=== PATIENT | female | born 1930 | race Hispanic/Latino ===

== ENCOUNTER 2018-10-06 16:57 | Emergency (ER) | payer MEDICARE, OTHER ==
[2018-10-06 17:11] VITALS: BMI 33.6
[2018-10-06 17:23] VITALS: TEMP 97.6; O2SAT 97
[2018-10-06] MEDS ORDERED: Lidocaine 5% Patch TD STA (18:15)
[2018-10-06] MEDS ORDERED: Lidocaine 5% Patch TD ONE (18:23)
--- NOTE | 2018-10-06 18:30 | ED PDOC ---
HPI: Back Time Seen by Provider: 10/06/18 17:59 Chief Complaint (Nursing): Back Pain Chief Complaint (Provider): Back Pain History Per: Patient, Family History/Exam Limitations: no limitations Onset/Duration Of Symptoms: Days Current Symptoms Are (Timing): Still Present Quality Of Discomfort: "Pain" Additional Complaint(s): 88 y/o female with a PMHx of HTN, Arthritis, Bronchitis and Hypercholesterolemia presents to the ED for evaluation of low back pain, onset 4 days ago. Patient states back pain is right sided, comes and goes and radiates down to the right leg. Patient reports pain worsens when sitting, laying down and standing. Patient notes of taking Tramadol with minimal relief of pain. Patient last took Tramadol 2 hours prior to arrival. Patient additionally reports of slight relief of pain when walking. Of note, patient reports falling off the couch three weeks ago, landing on her knees. Otherwise, patient denies numbness, tingling, abdominal pain, constipation, incontinence, diarrhea, chest pain, shortness of breath and headache. PMD: [facility]aus[facility] Card Past Medical History Reviewed: Historical Data, Nursing Documentation, Vital Signs Vital Signs: Last Vital Signs Temp 97.6 F 10/06/18 17:22 Pulse 67 10/06/18 17:22 Resp 16 10/06/18 17:22 BP 187/82 H 10/06/18 17:22 Pulse Ox 97 10/06/18 17:22 - Medical History PMH: Anxiety, Depression, HTN, Hypercholesterolemia - Surgical History Surgical History: Cholecystectomy, Tonsillectomy - Family History Family History: States: Unknown Family Hx - Home Medications Home Medications: Ambulatory Orders Medication Instructions Recorded Allergy Pill PO DAILY 09/05/14 Alprazolam [Xanax] PO PRN 09/05/14 Blood Pressure Pill PO BID 09/05/14 Cholesterol Pill PO HS 09/05/14 Escitalopram [Lexapro] PO DAILY 09/05/14 No Known Home Med 09/05/14 - Allergies Allergies/Adverse Reactions: Allergies Allergy/AdvReac Type Severity Reaction Status Date / Time No Known Allergies Allergy Verified 10/06/18 17:11 Review of Systems ROS Statement: Except As Marked, All Systems Reviewed And Found Negative Cardiovascular: Negative for: Chest Pain Respiratory: Negative for: Shortness of Breath Gastrointestinal: Negative for: Abdominal Pain, Diarrhea, Constipation Genitourinary Female: Negative for: Incontinence Musculoskeletal: Positive for: Back Pain (right), Leg Pain (right) Neurological: Negative for: Weakness, Numbness, Headache Physical Exam - Reviewed Nursing Documentation Reviewed: Yes Vital Signs Reviewed: Yes - Physical Exam Appears: Positive for: No Acute Distress Head Exam: Positive for: ATRAUMATIC, NORMOCEPHALIC Skin: Positive for: Normal Color, Warm, Dry Eye Exam: Positive for: Normal appearance Neck: Positive for: Normal, Painless ROM Cardiovascular/Chest: Positive for: Regular Rate, Rhythm. Negative for: Murmur Respiratory: Positive for: Normal Breath Sounds. Negative for: Respiratory Distress Back: Positive for: Other (Tenderness to the lower back/buttock area.) Extremity: Positive for: Normal ROM. Negative for: Deformity Neurologic/Psych: Positive for: Alert, Oriented. Negative for: Motor/Sensory Deficits - ECG O2 Sat by Pulse Oximetry: 97 (RA) Pulse Ox Interpretation: Normal - Radiology X-Ray: Interpreted by Me, Viewed By Me X-Ray Interpretation: No Acute Disease - Progress ED Course And Treament: 1849: Dr. Veloz to take over care. Fu ct and pain control. Medical Decision Making Medical Decision Making: Time: 1814 Plan: -- Lumbar Spine Complete XR -- Lidoderm 1 ea TD -- Motrin 600 mg PO ___ Scribe Attestation: Documented by Mendoza Scherer, acting as a scribe for Paxton Martínez MD. Provider Scribe Attestation: All medical record entries made by the Scribe were at my direction and personally dictated by me. I have reviewed the chart and agree that the record accurately reflects my personal performance of the history, physical exam, medical decision making, and the department course for this patient. I have also personally directed, reviewed, and agree with the discharge instructions and disposition. Disposition - Clinical Impression Clinical Impression: Back pain - Patient ED Disposition Is Patient to be Admitted: No - Disposition Disposition Time: 18:49 Condition: STABLE Patient Signed Over To: Kenyon Veloz
--- NOTE | 2018-10-06 19:10 | ED PDOC ---
- ECG O2 Sat by Pulse Oximetry: 97 (RA) Pulse Ox Interpretation: Normal Medical Decision Making Medical Decision Making: Time: 1899 -- Patient endorsed to me by Dr. Martínez, pending CT lumbar. Time: 2020 CT RESULTS FINDINGS: ALIGNMENT: Slight anterolisthesis is seen of L5 on S1 vertebral body. DISCS/DEGENERATIVE CHANGES: Varying degrees of spinal canal with mild narrowing is seen at virtually all levels from mild diffuse disc bulges. Vacuum phenomenon is seen at virtually all levels except L5/S1 and L3/L4 level. Facet degenerative changes are seen predominating at the L4/L5 and L5/S1 levels. Facet fusion is seen bilaterally at the L5/S1 level. BONES: No acute fracture is seen. Slight anterolisthesis is seen of L4 and L5 vertebral body. SOFT TISSUES: The soft tissues are unremarkable. MISCELLANEOUS: Marginal anterior osteophytes are seen at multiple levels. Mild spinal canal narrowing is seen to varying degrees by diffuse disc bulge virtually all levels. IMPRESSION: 1. No acute fracture is seen. 2. Slight anterolisthesis is seen of L4 and L5 vertebral body. 3. Facet degenerative changes are seen predominating at the L4/L5 and L5/S1 levels. 4. Marginal anterior osteophytes are seen at multiple levels. 5. Vacuum phenomenon is seen at virtually all levels except L5/S1 and L3/L4 level. 6. Mild spinal canal narrowing is seen to varying degrees by diffuse disc bulge virtually all levels. 7. Facet fusion is seen bilaterally at the L5/S1 level. Electronically signed on Oct 06, 2018 8:21:46 PM EST by: Karel Silveira M.D., HEATHER Certified By [facility] Trained MRI and CT Specialist Time: 2038 -- On re-evaluation, patient reports some improvement of symptoms. Provider explained findings at length with the patient and family. Patient advised to follow up with PMD for physiotherapy referral and further management. Patient is stable for discharge with a diagnosis of low back pain, bulging disks. Return precautions provided. ___ Scribe Attestation: Documented by Mendoza Scherer, acting as a scribe for Kenyon Veloz MD. Provider Scribe Attestation: All medical record entries made by the Scribe were at my direction and personally dictated by me. I have reviewed the chart and agree that the record accurately reflects my personal performance of the history, physical exam, medical decision making, and the department course for this patient. I have also personally directed, reviewed, and agree with the discharge instructions and disposition. Disposition Counseled Patient/Family Regarding: Studies Performed, Diagnosis, Need For Followup, Rx Given - Clinical Impression Clinical Impression: Back pain, Bulging lumbar disc - POA Present On Arrival: Falls Or Trauma - Disposition Disposition: Routine/Home Disposition Time: 20:39 Condition: STABLE Prescriptions: Celecoxib [Celebrex] 200 mg PO BID #10 capsule Lidocaine 5% [Lidoderm] 1 ea TD QAM #10 patch Instructions: Low Back Pain in Adults Forms: [facility] (Yakut)
[2018-10-06 20:02] VITALS: BP 147/75; PULSE 62
[2018-10-07 01:05] VITALS: RESP 18
--- NOTE | 2018-10-07 09:15 | RAD ---
Date of service: 10/06/2018 PROCEDURE: Radiographs of the Lumbar Spine. HISTORY: back pain COMPARISON: No prior. FINDINGS: BONES: Normal alignment. No listhesis. No fracture. Diffuse thoraco lumbar spondylosis most pronounced anteriorly and laterally laterally at the right T11-12 level and left laterally at the L4-5 level. DISC SPACES: Diffusely narrowed. OTHER FINDINGS: Right upper outer quadrant cholecystectomy clips. stool retention. IMPRESSION: No fracture or lytic lesion. 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 Other findings as above.
--- NOTE | 2018-10-07 11:55 | CT ---
Date of service: 10/06/2018 PROCEDURE: CT Lumbar Spine without contrast HISTORY: back pain COMPARISON: None available. TECHNIQUE: Axial computed tomography images were obtained of the lumbar spine without the use of intravenous contrast. Coronal and sagittal reformatted images were created and reviewed. Radiation dose: Total exam DLP = 1100.03 mGy-cm. This CT exam was performed using one or more of the following dose reduction techniques: Automated exposure control, adjustment of the mA and/or kV according to patient size, and/or use of iterative reconstruction technique. FINDINGS: VERTEBRAE: No fracture. For purposes of this report the lowest disc containing space is considered L5-S1 disc space is slightly rudimentary and transitional elements here suggested. Given this numbering there is minimal 2 mm anterior subluxation of L4 relative to L5. DISCS/SPINAL CANAL/NEURAL FORAMINA: L1-2: Diffuse endplate ridging. Diffuse disc bulging no gross spinal stenosis seen L2-3: Diffuse endplate ridging and diffuse disc bulging. Primarily lateral recess and proximal foraminal compromise is fairly symmetrical. L3-4: Diffuse endplate ridging and diffuse disc bulging slightly more greater towards the left side. Slightly greater left lateral recess left proximal foraminal encroachments. Central canal also slightly narrowed. L4-5: Endplate ridging and facet hypertrophic changes. Central canal lower limits of normal. Concomitant anterior inferior bilateral foraminal encroachments. Mild anterior subluxation of L4 relative to the L5 vertebral body also suggested. L5-S1: Facet hypertrophic changes and transitional elements suggested. Here these a sacralized L5 transverse processes are normal C articulating with the remaining sacrum. PARASPINAL SOFT TISSUES: Unremarkable. OTHER FINDINGS: There is presence of aortic atherosclerotic calcification and possible concomitant mural plaque is noted on this cross sectional studies. IMPRESSION: No vertebral body fracture. Multi level degenerative spondylosis, facet arthrosis and degenerative disc disease changes with the after mentioned effects. Concordant results (preliminary interpretation) provided by [facility].
== END 2018-10-06 20:49 | disposition home or self-care (01) ==
LOC: H.ER 16:57
DX: M54.9 Dorsalgia, unspecified (principal); M51.26 Other intervertebral disc displacement, lumbar region